=== PATIENT | female | born 2005 | race Two or more races ===

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

== ENCOUNTER 2025-07-21 20:13 | Emergency (ER) | payer OTHER ==
[~2025-07-21] VITALS: Ht 149.9 cm; Wt 50.8 kg
[~2025-07-21 20:13] MED LIST: ONDANSETRON ODT8 MG PO; OSEL75CA PO; TUSNEL LIQUID178 ML PO
[2025-07-21] MEDS ORDERED: KETOROLAC TROMETHAMINE 60 MG VIAL IM STA (21:04)
[2025-07-21] MEDS ORDERED: KETOROLAC TROMETHAMINE 60 MG VIAL IM ONE (21:41)
[2025-07-21 22:04] LABS: BASO % 0.5 % (0.1-1.2); EOS # 0.09 (0.04-0.54); EOS % 0.8 % (0.7-7.0); LYMPH # 2.40 (1.18-3.74); LYMPH % 21.6 % (19.3-53.1); MEAN PLATELET VOLUME 9.00 fl (9.4-12.4); MONO # 0.61 (0.24-0.82); MONO % 5.5 % (4.7-12.5); NEUT # 7.92 (1.56-6.13); NEUT % 71.4 % (34.0-71.1); RED CELL DISTRIBUTION WIDTH 16.3 % (11.6-14.4)
[2025-07-21 22:11] LABS: ERYTHROCYTE SEDIMENTATION RATE 26 mm/hr (0-20)
== END 2025-07-22 01:16 | disposition home or self-care (01) ==
LOC: ER 20:14 → EMR PED 20:14
PROVIDERS: Pediatrics
DX: R07.9 Chest pain, unspecified (principal)